=== PATIENT | male | born 1980 | race African-American/Black ===

== ENCOUNTER 2016-08-22 20:09 | Emergency (ER) | payer MEDICAID ==
[~2016-08-22] VITALS: Ht 185.4 cm; Wt 118.0 kg
[~2016-08-22 20:09] MED LIST: [UNRECOGNIZED DRUG - REMARK]
[2016-08-22 21:15] VITALS: BP 173/103
== END 2016-08-23 05:25 | disposition left against medical advice (07) ==
LOC: ER 08-23 04:42
DX: Z53.21 Procedure and treatment not carried out due to patient leaving prior to being seen by health care provider (principal)

== ENCOUNTER 2016-08-23 08:49 | Emergency (ER) | payer MEDICAID ==
[~2016-08-23] VITALS: Ht 185.4 cm; Wt 118.0 kg
[2016-08-23] MEDS ORDERED: IBUPROFEN 800MG TABLET PO ONE (09:30)
[2016-08-23 12:10] VITALS: BP 156/88
== END 2016-08-23 12:48 | disposition home or self-care (01) ==
LOC: ER 10:24
DX: S02.81XB Fracture of other specified skull and facial bones, right side, initial encounter for open fracture (principal); M79.641 Pain in right hand; I10 Essential (primary) hypertension; Y04.0XXA Assault by unarmed brawl or fight, initial encounter; Y93.89 Activity, other specified; Y92.89 Other specified places as the place of occurrence of the external cause
CPT/HCPCS: 70486; 73130; 99284; Z7610

== ENCOUNTER 2018-11-16 20:01 | Emergency (ER) | payer MEDICAID, MEDICARE ==
[~2018-11-16] VITALS: Ht 185.4 cm; Wt 137.0 kg
[2018-11-16 23:10] LABS: BASOPHILS % 0.4 % (0.0-2.0); EOSINOPHILS % 1.1 % (0.0-5.0); HEMATOCRIT. 40.6 % (42.0-52.0); HEMOGLOBIN. 14.3 g/dL (14.0-18.0); LYMPHOCYTES % 44.6 % (20.0-50.0); MEAN CORPUSCULAR HEMOGLOBIN 31.3 pg (28.0-32.0); MEAN CORPUSCULAR VOLUME 89.1 fL (80.0-94.0); MEAN PLATELET VOLUME 7.9 fl (7.4-10.4); MONOCYTES % 7.2 % (2.0-8.0); NEUTROPHILS % 46.7 % (40.0-76.0); PLATELET 175 x1000/uL (130-400); RED BLOOD CELL COUNT 4.56 mill/uL (4.7-6.1); RED CELL DISTRIBUTION WIDTH 13.8 % (11.6-14.6)
[2018-11-16 23:15] LABS: CHLORIDE 104 mEq/L (98-107)
[2018-11-17] VITALS: BP 149/84
== END 2018-11-17 00:51 | disposition left against medical advice (07) ==
LOC: ER 20:01
DX: R07.9 Chest pain, unspecified (principal); I11.9 Hypertensive heart disease without heart failure; F17.200 Nicotine dependence, unspecified, uncomplicated; Z71.6 Tobacco abuse counseling
CPT/HCPCS: 36415; 71045; 83880; 84484; 93005; 99284; 99406

== ENCOUNTER 2020-01-20 08:25 | Emergency (ER) | payer MEDICAID, MEDICARE ==
[~2020-01-20] VITALS: Ht 177.8 cm; Wt 100.0 kg
[2020-01-20] MEDS ORDERED: MORPHINE SULFATE 4 MG/ML CPJ (NOT FOR IM USE) IV STA (08:38)
[2020-01-20 10:11] LABS: BASOPHILS % 0.5 % (0.0-2.0); EOSINOPHILS % 0.6 % (0.0-5.0); HEMATOCRIT. 48.8 % (42.0-52.0); HEMOGLOBIN. 16.8 g/dL (14.0-18.0); LYMPHOCYTES % 24.3 % (20.0-50.0); MEAN CORPUSCULAR HEMOGLOBIN 32.8 pg (28.0-32.0); MEAN CORPUSCULAR VOLUME 95.6 fL (80.0-94.0); MONOCYTES % 2.4 % (2.0-8.0); NEUTROPHILS % 72.2 % (40.0-76.0); PLATELET 164 x1000/uL (130-400); RED BLOOD CELL COUNT 5.11 mill/uL (4.7-6.1)
[2020-01-20] MEDS ORDERED: KETOROLAC 30MG/ML VIAL IV ONE (11:00)
[2020-01-20 11:04] LABS: CHLORIDE 106 mEq/L (98-107)
[2020-01-20 13:57] VITALS: BP 159/95
== END 2020-01-20 14:16 | disposition short-term general hospital (02) ==
LOC: ER 08:57
DX: R07.9 Chest pain, unspecified (principal); I11.9 Hypertensive heart disease without heart failure; I25.2 Old myocardial infarction; Z95.820 Peripheral vascular angioplasty status with implants and grafts
CPT/HCPCS: 36415; 71045; 80053; 83880; 84484; 85025; 93005; 96374; 96375; 99285; J1885; J2270

== ENCOUNTER 2020-05-01 01:31 | Emergency (ER) | payer MEDICAID, OTHER ==
[~2020-05-01] VITALS: Ht 188 cm; Wt 104.0 kg
[2020-05-01] MEDS ORDERED: ASPIRIN 81MG TABLET PO ONE (01:45)
[2020-05-01] MEDS ORDERED: MORPHINE SULFATE 4 MG/ML CPJ (NOT FOR IM USE) IV ONE (01:45)
[2020-05-01] MEDS ORDERED: ONDANSETRON HCL 4MG/2ML INJ IV ONE (01:45)
[2020-05-01] MEDS ORDERED: CALCIUM GLUCONATE 100MG/ML 10ML VIAL IV ONE (01:45)
[2020-05-01] MEDS ORDERED: KETOROLAC 30MG/ML VIAL IV ONE (02:00)
[2020-05-01 02:20] LABS: HEMOGLOBIN. 15.1 g/dL (14.0-18.0); MEAN CORPUSCULAR HEMOGLOBIN 33.1 pg (28.0-32.0); MEAN CORPUSCULAR VOLUME 96.2 fL (80.0-94.0); MEAN PLATELET VOLUME 9.2 fl (7.4-10.4); PLATELET 88 x1000/uL (130-400); RED BLOOD CELL COUNT 4.57 mill/uL (4.7-6.1)
[2020-05-01 02:33] LABS: CHLORIDE 95 mEq/L (98-107)
[2020-05-01 02:38] LABS: ETHANOL BLOOD < 10 mg/dL
[2020-05-01 02:42] LABS: CREATINE KINASE 104 IU/L (39-308)
[2020-05-01] MEDS ORDERED: SODIUM CHLORIDE 0.9% 1,000 ML IV ONE ×2 (03:30→03:45)
[2020-05-01] MEDS ORDERED: HYDROCHLOROTHIAZIDE 25MG TABLET PO ONE (03:30)
[2020-05-01 03:40] LABS: PLATELET ESTIMATE DECREASED
[2020-05-01] MEDS ORDERED: HYDROMORPHONE HCL/PF 2MG/ML CPJ IV SCH (03:45)
[2020-05-01] MEDS ORDERED: CHLORDIAZEPOXIDE 25MG CAPSULE PO SCH (05:15)
[2020-05-01 07:18] VITALS: BP 160/94
== END 2020-05-01 07:38 | disposition short-term general hospital (02) ==
LOC: ER 01:31
DX: K85.90 Acute pancreatitis without necrosis or infection, unspecified (principal); I25.2 Old myocardial infarction; E11.9 Type 2 diabetes mellitus without complications; Z98.890 Other specified postprocedural states
CPT/HCPCS: 36415; 71045; 80053; 80320; 82550; 83690; 83880; 84484; 85025; 93005; 96361; 96374; 96375; 99285; J0610; J1170; J1885; J2270; J2405; J7030; Z7610; G0480

== ENCOUNTER 2020-06-06 05:28 | Emergency (ER) | payer OTHER ==
[~2020-06-06] VITALS: Ht 185.4 cm; Wt 109.0 kg
[2020-06-06] MEDS ORDERED: SODIUM CHLORIDE 0.9% 1,000 ML IV ONE ×2 (06:15→07:00)
[2020-06-06] MEDS ORDERED: MORPHINE SULFATE 4 MG/ML CPJ (NOT FOR IM USE) IV ONE (06:15)
[2020-06-06 06:24] LABS: BASOPHILS % 0.4 % (0.0-2.0); EOSINOPHILS % 0.9 % (0.0-5.0); HEMATOCRIT. 43.4 % (42.0-52.0); HEMOGLOBIN. 14.6 g/dL (14.0-18.0); LYMPHOCYTES % 10.9 % (20.0-50.0); MEAN CORPUSCULAR HEMOGLOBIN 31.9 pg (28.0-32.0); MEAN CORPUSCULAR VOLUME 94.6 fL (80.0-94.0); MEAN PLATELET VOLUME 8.1 fl (7.4-10.4); MONOCYTES % 7.5 % (2.0-8.0); NEUTROPHILS % 80.3 % (40.0-76.0); PLATELET 75 x1000/uL (130-400); RED BLOOD CELL COUNT 4.59 mill/uL (4.7-6.1); RED CELL DISTRIBUTION WIDTH 15.9 % (11.6-14.6)
[2020-06-06 06:31] LABS: CHLORIDE 99 mEq/L (98-107)
[2020-06-06] MEDS ORDERED: HYDROMORPHONE HCL/PF 2MG/ML CPJ IV ONE (07:00)
[2020-06-06] MEDS ORDERED: CEFTRIAXONE 1 G PREMIX 50 ML IV ONE (08:00)
[2020-06-06] MEDS ORDERED: METRONIDAZOLE 500 MG PREMIX 100 ML IV ONE (08:00)
[2020-06-06 10:03] VITALS: BP 130/99
== END 2020-06-06 10:06 | disposition short-term general hospital (02) ==
LOC: ER 05:28
DX: K85.90 Acute pancreatitis without necrosis or infection, unspecified (principal); R07.9 Chest pain, unspecified; E11.9 Type 2 diabetes mellitus without complications; I25.2 Old myocardial infarction; Z95.1 Presence of aortocoronary bypass graft
CPT/HCPCS: 36415; 71045; 74176; 76705; 80053; 83690; 83880; 84484; 85025; 93005; 96361; 96365; 96375; 99285; J0696; J1170; J2270; J3490; J7030

== ENCOUNTER 2020-06-10 12:35 | Emergency (ER) | payer OTHER ==
[~2020-06-10] VITALS: Ht 185.4 cm; Wt 109.0 kg
[2020-06-10 13:13] LABS: BASOPHILS % 0.3 % (0.0-2.0); EOSINOPHILS % 0.2 % (0.0-5.0); HEMATOCRIT. 38.6 % (42.0-52.0); HEMOGLOBIN. 13.2 g/dL (14.0-18.0); LYMPHOCYTES % 27.2 % (20.0-50.0); MEAN CORPUSCULAR HEMOGLOBIN 31.9 pg (28.0-32.0); MEAN CORPUSCULAR VOLUME 93.4 fL (80.0-94.0); MEAN PLATELET VOLUME 8.7 fl (7.4-10.4); MONOCYTES % 13.1 % (2.0-8.0); NEUTROPHILS % 59.2 % (40.0-76.0); PLATELET 171 x1000/uL (130-400); RED BLOOD CELL COUNT 4.13 mill/uL (4.7-6.1)
[2020-06-10 13:19] LABS: CHLORIDE 98 mEq/L (98-107)
[2020-06-10] MEDS ORDERED: ASPIRIN 81MG TABLET PO ONE (15:15)
[2020-06-10] MEDS ORDERED: POTASSIUM CHLORIDE 20MEQ TABLET SR PO ONE (15:30)
[2020-06-10] MEDS ORDERED: POTASSIUM CHLORIDE INJ 30 MEQ in DEXT 5%/0.9% NACL 1,000 ML IV ONE (15:30)
[2020-06-10] MEDS ORDERED: NITROGLYCERIN 0.4MG TABLET SL SL ONE (16:30)
[2020-06-10 17:53] VITALS: BP 134/83
== END 2020-06-10 18:00 | disposition home or self-care (01) ==
LOC: ER 12:35
DX: R07.9 Chest pain, unspecified (principal); E87.6 Hypokalemia; E11.9 Type 2 diabetes mellitus without complications; E78.00 Pure hypercholesterolemia, unspecified; I10 Essential (primary) hypertension; I25.2 Old myocardial infarction
CPT/HCPCS: 36415; 71045; 80053; 83880; 84484; 85025; 93005; 96365; 99285; J3480; J7042; Z7610

== ENCOUNTER 2020-06-18 17:53 | Emergency (ER) | payer OTHER ==
[~2020-06-18] VITALS: Ht 193 cm; Wt 125.0 kg
[2020-06-18] MEDS ORDERED: NITROGLYCERIN OINT 1GM/INCH UDPKT TD ONE (19:15)
[2020-06-18] MEDS ORDERED: SODIUM CHLORIDE 0.9% 500 ML IV ONE (19:15)
[2020-06-18 19:22] LABS: BASOPHILS % 2.4 % (0.0-2.0); EOSINOPHILS % 0.3 % (0.0-5.0); HEMATOCRIT. 40.2 % (42.0-52.0); HEMOGLOBIN. 13.8 g/dL (14.0-18.0); LYMPHOCYTES % 32.3 % (20.0-50.0); MEAN CORPUSCULAR HEMOGLOBIN 32.4 pg (28.0-32.0); MEAN CORPUSCULAR VOLUME 94.3 fL (80.0-94.0); MEAN PLATELET VOLUME 7.1 fl (7.4-10.4); MONOCYTES % 4.6 % (2.0-8.0); NEUTROPHILS % 60.4 % (40.0-76.0); PLATELET 389 x1000/uL (130-400); RED BLOOD CELL COUNT 4.26 mill/uL (4.7-6.1); RED CELL DISTRIBUTION WIDTH 15.7 % (11.6-14.6)
[2020-06-18 19:26] LABS: CHLORIDE 99 mEq/L (98-107)
[2020-06-18 19:30] LABS: INR 1.1; PROTHROMBIN TIME 11.7 sec (9.6-11.0)
[2020-06-18 19:31] LABS: ETHANOL BLOOD 160 mg/dL
[2020-06-18] MEDS ORDERED: KETOROLAC 15MG/ML VIAL IV ONE (21:45)
[2020-06-18 23:35] VITALS: BP 156/80
== END 2020-06-19 00:38 | disposition short-term general hospital (02) ==
LOC: ER 17:53 → CANBEDREQ 06-19 05:01
DX: R07.9 Chest pain, unspecified (principal); F10.129 Alcohol abuse with intoxication, unspecified; Y90.6 Blood alcohol level of 120-199 mg/100 ml; I25.10 Atherosclerotic heart disease of native coronary artery without angina pectoris; E11.9 Type 2 diabetes mellitus without complications; E78.00 Pure hypercholesterolemia, unspecified; I10 Essential (primary) hypertension; I25.2 Old myocardial infarction; Z88.6 Allergy status to analgesic agent; Z95.5 Presence of coronary angioplasty implant and graft
CPT/HCPCS: 36415; 71045; 80053; 80320; 83690; 83880; 84484; 85025; 85610; 93005; 96361; 96374; 99285; J1885; J7040; G0480

== ENCOUNTER 2021-01-14 09:28 | Inpatient (IN) | payer OTHER ==
[~2021-01-14] VITALS: Ht 185.4 cm; Wt 114.0 kg
[2021-01-14] MEDS ORDERED: ONDANSETRON HCL 4MG/2ML INJ IV STA (09:42)
[2021-01-14] MEDS ORDERED: VISCOUS LIDOCAINE 2% 15 ML UDC PO STA (09:42)
[2021-01-14] MEDS ORDERED: MAGNESIUM/ALUMINUM HYDROXIDE/SIMETHICONE 30ML UDC PO STA (09:42)
[2021-01-14] MEDS: KETOROLAC 30MG/ML VIAL IV STA ×2 (09:42→11:49)
[2021-01-14] MEDS ORDERED: SODIUM CHLORIDE 0.9% 1000ML BAG (SEPSIS BOLUS) IV ONE (09:45)
[2021-01-14 10:43] LABS: BASOPHILS % 0.5 % (0.0-2.0); EOSINOPHILS % 0.4 % (0.0-5.0); HEMATOCRIT. 38.6 % (42.0-52.0); HEMOGLOBIN. 13.6 g/dL (14.0-18.0); LYMPHOCYTES % 20.4 % (20.0-50.0); MEAN CORPUSCULAR HEMOGLOBIN 34.1 pg (28.0-32.0); MEAN CORPUSCULAR VOLUME 96.7 fL (80.0-94.0); MEAN PLATELET VOLUME 9.6 fl (7.4-10.4); MONOCYTES % 8.7 % (2.0-8.0); PLATELET 100 x1000/uL (130-400); RED BLOOD CELL COUNT 3.99 mill/uL (4.7-6.1); RED CELL DISTRIBUTION WIDTH 14.5 % (11.6-14.6)
[2021-01-14 10:45] LABS: CHLORIDE 90 mEq/L (98-107)
[2021-01-14 10:48] LABS: INR 1.3; PROTHROMBIN TIME 13.3 sec (9.6-11.0)
[2021-01-14 10:53] LABS: ETHANOL BLOOD < 10 mg/dL
[2021-01-14] MEDS ORDERED: KCL 20MEQ/100ML PREMIX 100 ML IV NR ×2 (12:30→16:30)
[2021-01-14 13:10] LABS: CLARITY URINE CLEAR (CLEAR); COLOR URINE DARK YELLOW (YELLOW); KETONES URINE 2+ (NEGATIVE); LEUKOCYTE ESTERASE URINE 1+ (NEGATIVE); NITRITE URINE POSITIVE (NEGATIVE); OCCULT BLOOD URINE NEGATIVE (NEGATIVE); PH URINE 6.5 (4.5-8.0); PROTEIN URINE 1+ (NEGATIVE); SPECIFIC GRAVITY URINE 1.022 (1.005-1.030)
[2021-01-14 14:39] LABS: *AMPHETAMINES SCREEN URINE NEGATIVE (NEGATIVE); *BARBITURATES SCREEN URINE NEGATIVE (NEGATIVE); *BENZODIAZEPINES SCREEN URINE NEGATIVE (NEGATIVE); *COCAINE SCREEN URINE NEGATIVE (NEGATIVE)
[2021-01-14 14:40] LABS: CANNABINOID URINE SCREEN NEGATIVE (NEGATIVE); METHADONE URINE SCREEN NEGATIVE (NEGATIVE); OPIATES URINE SCREEN NEGATIVE (NEGATIVE); PHENCYCLIDINE URINE SCREEN NEGATIVE (NEGATIVE)
[2021-01-14 21:15] VITALS: BP 160/99
[2021-01-14] MEDS ORDERED: DEXTROSE 50% WATER 50ML SYRINGE IV PRN (22:15)
[2021-01-14] MEDS ORDERED: ONDANSETRON HCL 4MG/2ML INJ IV PRN (22:15)
[2021-01-14] MEDS ORDERED: HYDROMORPHONE HCL/PF 2MG/ML CPJ IM PRN (22:15)
[2021-01-14] MEDS ORDERED: HYDRALAZINE 20MG/ML VIAL IV SCH (22:15)
[2021-01-14] MEDS ORDERED: METRONIDAZOLE 500 MG PREMIX 100 ML IV SCH (22:15)
[2021-01-15] MEDS ORDERED: LEVOFLOXACIN 500MG PREMIX 100 ML IV SCH (01:00)
[2021-01-15] MEDS ORDERED: DEXT 5%/0.9% NACL KCL 20MEQ/L 1,000 ML IV SCH (01:00)
[2021-01-15] MEDS ORDERED: BLOOD SUGAR DIAGNOSTIC STRIP TEST SCH (06:40)
[2021-01-15] MEDS ORDERED: INSULIN LISPRO 100 UNITS/ML SUBCUT SCH (07:10)
== END 2021-01-15 00:01 | DRG 244 ==
LOC: ER 09:28 → 7EST 17:50 → EDBEDREQTM 17:53 → EDBEDREQSVC 17:53 → EDBEDREQ 17:53 → ENRESERV 19:08
PROVIDERS: ADMIT Internal Medicine; ATTEND Internal Medicine
DX: K57.32 Diverticulitis of large intestine without perforation or abscess without bleeding (principal); E11.9 Type 2 diabetes mellitus without complications; E78.00 Pure hypercholesterolemia, unspecified; I10 Essential (primary) hypertension; Z20.822 Contact with and (suspected) exposure to COVID-19; I25.10 Atherosclerotic heart disease of native coronary artery without angina pectoris; Z95.5 Presence of coronary angioplasty implant and graft; I25.2 Old myocardial infarction; Z88.6 Allergy status to analgesic agent
CPT/HCPCS: 36415; 71045; 74176; 80053; 80305; 80320; 81003; 82962; 83605; 84145; 84484; 85025; 87426; 93005; 99291; J1885; J1956; J2405; J3480; J7030; G0480

== ENCOUNTER 2022-11-25 13:02 | Emergency (ER) | payer OTHER ==
[~2022-11-25] VITALS: Ht 185.4 cm; Wt 115.0 kg
[2022-11-25 13:19] VITALS: O2SAT 95
[2022-11-25 14:12] LABS: CHLORIDE 100 mEq/L (98-107); INDEX HEMOLYSI 1 (1-3); INDEX ICTERIC 3 (1-4); INDEX LIPEMIC 1 (1-3); SODIUM 132 mEq/L (136-145)
[2022-11-25 14:21] LABS: ALANINE AMINOTRANSFERASE 32 IU/L (13-61); AMMONIA 67 uMol/L (<32); ASPARTATE AMINOTRANSFERASE 83 IU/L (15-37); BILIRUBIN TOTAL 6.6 mg/dL (0.1-1.0); CALCIUM 7.9 mg/dL (8.5-10.1); CARBON DIOXIDE 23 mEq/L (21-32); CREATININE 0.5 mg/dL (0.6-1.3); GLUCOSE 98 mg/dL (70-105); HEMATOCRIT. 23.3 % (42.0-52.0); HEMOGLOBIN. 7.9 g/dL (14.0-18.0); MEAN CORPUSCULAR HGB CONC 34.1 g/dL (31.0-37.0); MEAN CORPUSCULAR VOLUME 105.6 fL (80.0-94.0); MEAN PLATELET VOLUME 8.8 fl (7.4-10.4); PLATELET 54 x1000/uL (130-400); PROTEIN TOTAL 6.8 g/dL (6.0-8.3); RED CELL DISTRIBUTION WIDTH 18.1 % (11.6-14.6); UREA NITROGEN BLOOD 5 mg/dL (7-21); WHITE BLOOD COUNT 3.3 x1000/uL (4.5-11.0)
[2022-11-25 14:22] LABS: DIFFERENTIAL COMMENT 1
[2022-11-25 18:12] LABS: PLATELET ESTIMATE DECREASED
[2022-11-25 18:13] LABS: ANISOCYTOSIS 2+; HYPOCHROMASIA 1+
[2022-11-25 23:32] VITALS: BP 132/63; PULSE 90; RESP 16; TEMP 98.4
== END 2022-11-25 23:25 | disposition short-term general hospital (02) ==
LOC: ER 13:26 → CANBEDREQ 20:02 → ER 23:25
DX: F10.129 Alcohol abuse with intoxication, unspecified (principal); R10.9 Unspecified abdominal pain; R71.0 Precipitous drop in hematocrit; E72.20 Disorder of urea cycle metabolism, unspecified; K70.30 Alcoholic cirrhosis of liver without ascites; E11.9 Type 2 diabetes mellitus without complications; I10 Essential (primary) hypertension; I25.2 Old myocardial infarction; I25.10 Atherosclerotic heart disease of native coronary artery without angina pectoris; Z79.899 Other long term (current) drug therapy; Z88.5 Allergy status to narcotic agent; Y90.9 Presence of alcohol in blood, level not specified
CPT/HCPCS: 36415; 80053; 82140; 85025; 99285